=== PATIENT | female | born 1950 | race Caucasian/White ===

== ENCOUNTER 2017-08-14 14:50 | Emergency (ER) ==
[2017-08-14 14:57] VITALS: BP 195/103; TEMP 97.8; BMI 26.2
[2017-08-14] MEDS ORDERED: LOPRESSOR IVP STA (16:34)
--- NOTE | 2017-08-14 16:36 | DI ---
EXAM: Chest two view, frontal and lateral views. HISTORY: Chest pain. COMPARISON: None available. FINDINGS: The heart size is normal. Atherosclerotic calcifications present. There is no pulmonary vascular congestion. The lungs are clear. No pleural effusion or pneumothorax is seen. No acute os seous abnormality identified. IMPRESSION: No acute cardiopulmonary process.
[2017-08-14] MEDS ORDERED: MORPHINE 2 MG/ML SYRINGE IVP STA (17:38)
[2017-08-14] MEDS ORDERED: VASOTEC IV IVP STA (17:52)
[2017-08-14] MEDS ORDERED: VASOTEC IV IVP PRN (17:52)
[2017-08-14] MEDS ORDERED: NORCO 10-325 PO STA (17:54)
[2017-08-14] MEDS ORDERED: LOVENOX SUBCUT SCH (18:00)
[2017-08-14] MEDS ORDERED: SODIUM CHLORIDE 1,000 ML IV SCH (18:00)
--- NOTE | 2017-08-14 18:00 | ED.PDOC ---
General ED Provider: Dr. MARIAMA BOWERS Chief Complaint: Hypertension Stated Complaint: hypertension Time Seen by Physician: 15:00 Mode of Arrival: Walk-In Information Source: Patient Exam Limitations: No limitations Primary Care Provider: AD ONEAL Nursing and Triage Documentation Reviewed and Agree: Yes Reviewed sepsis parameters & appropriate labs ordered?: Yes System Inflammatory Response Syndrome: Not Applicable Sepsis Protocol: For patient's 13 years and over: Temp is 96.8 and below OR 101 and greater Pulse >90 BPM Resp >20/minute Acutely Altered Mental Status Are patient's symptoms suggestive of a new infection, such as: -Pneumonia -Skin, Soft Tissue -Endocarditis -UTI -Bone, Joint Infection -Implantable Device -Acute Abdominal Infection -Wound Infection -Meningitis -Blood Stream Catheter Infection -Unknown Cardiovascular Complaint Exam - Hypertension Complaint/Exam Symptoms Are: Still present Timing: Intermittent Aggravating: Reports: None Alleviating: Reports: None Associated Signs and Symptoms: Reports: Chest pain. Denies: Vision changes, Anxiety, Recent stress, Headache, Numbness, Tingling, Weakness, Dizziness, Short of air, Swelling Related History: Reports: Similar episode Related Surgical History: Reports: None Cardiac Risk Factors: Reports: Hypertension Recent Change in Medications: No A/V Nicking: No Papilledema Present: No JVD Present: No Carotid Bruit Present: No Femoral Pulses Bounding: No Differential Diagnoses: Hypertensive Urgency Quality Indicator For Non-Traumatic Chest Pain/Syncope: EKG Performed Review of Systems - Review Of Systems Constitutional: Reports: No symptoms Eyes: Reports: No symptoms Ears, Nose, Mouth, Throat: Reports: No symptoms Respiratory: Reports: No symptoms Cardiac: Reports: Chest pain GI: Reports: No symptoms : Reports: No symptoms Musculoskeletal: Reports: No symptoms Skin: Reports: No symptoms Neurological: Reports: No symptoms Endocrine: Reports: No symptoms Hematologic/Lymphatic: Reports: No symptoms All Other Systems: Reviewed and Negative Past Medical History - Past Medical History Previously Healthy: Yes Endocrine: Reports: Dyslipidemia Cardiovascular: Reports: Hypertension Respiratory: Reports: None Hematological: Reports: None Gastrointestinal: Reports: None Genitourinary: Reports: None Neuro/Psych: Reports: None Musculoskeletal: Reports: None Cancer: Reports: None Last Menstrual Period: na - Surgical History General Surgical History: Reports: None - Family History Family History: Reports: None - Social History Smoking Status: Former smoker Hx Substance Use: No Alcohol Screening: None - Immunizations Tetanus Shot up to Date: Yes Physical Exam - Physical Exam Appearance: Well-appearing, No pain distress, Well-nourished Eyes: PETER, EOMI, Conjunctiva clear ENT: Ears normal, Nose normal, Oropharynx normal Respiratory: Airway patent, Breath sounds clear, Breath sounds equal, Respirations nonlabored Cardiovascular: RRR, Pulses normal, No rub, No murmur GI/: Soft, Nontender, No masses, Bowel sounds normal, No Organomegaly Musculoskeletal: Normal strength, ROM intact, No edema, No calf tenderness Skin: Warm, Dry, Normal color Neurological: Sensation intact, Motor intact, Reflexes intact, Cranial nerves intact, Alert, Oriented Psychiatric: Affect appropriate, Mood appropriate Interpretation - Radiology Interpretation Radiology Interpretation By: Radiologist Radiology Results: No acute changes Physician Notification - Case Discussed Physician Notified: pmd Time of Notification: 17:59 Critical Care Note - Critical Care Note Total Time (mins): 0 Course - Course Hematology/Chemistry: 08/14/17 16:20 08/14/17 16:20 Orders, Labs, Meds: Lab Review 08/14/17 08/14/17 08/14/17 16:08 16:20 16:20 WBC 6.45 RBC 4.32 Hgb 13.6 Hct 38.4 MCV 88.9 MCH 31.5 H MCHC 35.4 RDW Coeff of Juan Miguel 13.2 Plt Count 276 Immature Gran % (Auto) 0.2 Neut % (Auto) 57.0 Lymph % (Auto) 31.3 [place] % (Auto) 9.3 Eos % (Auto) 1.6 Baso % (Auto) 0.6 Immature Gran # (Auto) 0.0 Neut # 3.7 Lymph # 2.0 [place] # 0.6 Eos # 0.1 Baso # 0.0 Sodium 144 Potassium 3.5 Chloride 111 H Carbon Dioxide 23 Anion Gap 13.5 BUN 9 Creatinine 0.79 Estimated GFR (MDRD) 73.00 BUN/Creatinine Ratio 11.39 Glucose 78 L Calcium 9.5 Total Bilirubin 0.7 AST 18 ALT 18 Alkaline Phosphatase 62 Total Creatine Kinase 52 Troponin I < 0.0100 Total Protein 6.9 Albumin 4.0 Globulin 2.9 Albumin/Globulin Ratio 1.38 Influenza A (Rapid) Negative by naat Influenza B (Rapid) Negative by naat Orders Category Date Time Status [facility] ADMISSION 08/14/17 17: 54 Ordered EKG-(ED ONLY) Stat CARDIO 08/14/17 15:31 Completed EKG-(ED ONLY) Stat CARDIO 08/14/17 16:33 Completed ACTIVITY .BR with BRP CARE 08/14/17 17:54 Ordered TELEMETRY MONITORING TELE CARE 08/14/17 17:55 Ordered VITAL SIGNS Q4HR CARE 08/14/17 17:54 Ordered REGULAR DIET DIETARY 08/14/17 Dinner Ordered CBC W/ AUTO DIFF DAILY@0600 LAB 08/15/17 06:00 Ordered CBC W/ AUTO DIFF DAILY@0600 LAB 08/16/17 06:00 Ordered CBC W/ AUTO DIFF Stat LAB 08/14/17 16:20 Completed COMPREHENSIVE METABOLIC PANEL DAILY@0600 LAB 08/15/17 06:00 Ordered COMPREHENSIVE METABOLIC PANEL DAILY@0600 LAB 08/16/17 06:00 Ordered COMPREHENSIVE METABOLIC PANEL Stat LAB 08/14/17 16:20 Completed CREATINE KINASE Q8H LAB 08/14/17 23:56 Ordered CREATINE KINASE Q8H LAB 08/15/17 07:56 Ordered CREATINE KINASE Stat LAB 08/14/17 16:20 Completed MOLECULAR FLU A/B Stat LAB 08/14/17 16:08 Completed MOLECULAR GROUP A STREP Stat LAB 08/14/17 16:08 Results STREP SCREEN Stat LAB 08/14/17 16:08 Results TROPONIN I Q8H LAB 08/14/17 23:56 Ordered TROPONIN I Q8H LAB 08/15/17 07:56 Ordered TROPONIN I Stat LAB 08/14/17 16:20 Completed 0.9 % Sodium Chloride [Saline Flush] MEDS 08/14/17 15:30 Active 1 syr IVF PRN PRN Aspirin [Aspirin Chewable] MEDS 08/15/17 08:00 Ordered 81 mg PO DAILYWM Atorvastatin Calcium [Lipitor] MEDS 08/15/17 09:00 Ordered 40 mg PO DAILY Enalaprilat Dihydrate [Vasotec IV] MEDS 08/14/17 17:52 Discontinued 1.25 mg IVP ONCE STA Enalaprilat Dihydrate [Vasotec IV] MEDS 08/14/17 17:52 Ordered 1.25 mg IVP Q6H PRN Enoxaparin Sodium [Lovenox] MEDS 08/14/17 18:00 Ordered 60 mg SUBCUT Q12HR Hydrocodone Bit/Acetaminophen [[place] 10-325] MEDS 08/14/17 17:54 Stat 1 tab PO ONCE STA Losartan Potassium MEDS 08/15/17 09:00 Ordered 50 mg PO DAILY Metoprolol Tartrate [Lopressor] MEDS 08/14/17 16:34 Discontinued 5 mg IVP ONCE STA Metoprolol Tartrate [Lopressor] MEDS 08/15/17 09:00 Ordered 50 mg PO DAILY Morphine Sulfate [Morphine 2 mg/ml Syringe] MEDS 08/14/17 17:38 Discontinued 2 mg IVP ONCE STA Pantoprazole Sodium [Protonix] MEDS 08/15/17 06:30 Ordered 40 mg PO QDAC Sodium Chloride 0.9% [Sodium Chloride] 1,000 ml MEDS 08/14/17 18:00 Ordered IV 75 mls/hr CHEST, 2 VIEWS PA & LAT Stat RADS 08/14/17 15:30 Completed Medications Generic Name Dose Route Start Last Admin Trade Name Freq PRN Reason Stop Dose Admin Aspirin 81 mg 08/15/17 08:00 Aspirin Chewable PO DAILYWM BEBA Enalaprilat 1.25 mg 08/14/17 17:52 Vasotec Iv IVP Q6H PRN Hypertensive Emergency Enoxaparin Sodium 60 mg 08/14/17 18:00 Lovenox SUBCUT Q12HR BEBA Sodium Chloride 1,000 mls @ 75 mls/hr 08/14/17 18:00 Sodium Chloride IV .[id number] BEBA Metoprolol Tartrate 50 mg 08/15/17 09:00 Lopressor PO DAILY BEBA Non-Formulary Medication 40 mg 08/15/17 09:00 Atorvastatin Calcium [Lipitor] PO DAILY BEBA Non-Formulary Medication 50 mg 08/15/17 09:00 Losartan Potassium PO DAILY BEBA Pantoprazole Sodium 40 mg 08/15/17 06:30 Protonix PO QDAC BEBA Sodium Chloride 1 syr 08/14/17 15:30 08/14/17 17:08 Saline Flush IVF 1 syr PRN PRN Administration To flush IV Discontinued Medications Generic Name Dose Route Start Last Admin Trade Name Freq PRN Reason Stop Dose Admin Acetaminophen/Hydrocodone Bitart 1 tab 08/14/17 17:54 [place] 10-325 PO 08/14/17 17:55 ONCE STA Enalaprilat 1.25 mg 08/14/17 17:52 Vasotec Iv IVP 08/14/17 17:53 ONCE STA Metoprolol Tartrate 5 mg 08/14/17 16:34 08/14/17 17:07 Lopressor IVP 08/14/17 16:35 5 mg ONCE STA Administration Morphine Sulfate 2 mg 08/14/17 17:38 Morphine 2 Mg/Ml Syringe IVP 08/14/17 17:39 ONCE STA Vital Signs: Temp Pulse Resp BP Pulse Ox 08/14/17 14:50 97.8 F 61 16 195/103 H 97 [place] Risk Score [place] Risk Score: Risk Score Odds of by 30D 0 0.1 (0.1-0.2) 1 0.3 (0.2-0.3) 2 0.4 (0.3-0.5) 3 0.7 (0.6-0.9) 4 1.2 (1.0-1.5) 5 2.2 (1.9-2.6) 6 3.0 (2.5-3.6) 7 4.8 (3.8-6.1) Departure - Departure Time of Disposition: 18:00 Disposition: ADMITTED INPATIENT Discharge Problem: Chest pain Qualifiers: Chest pain type: unspecified Qualified Code(s): R07.9 - Chest pain, unspecified Instructions: Chest Pain (ED), Angina (ED) Condition: Good Pt referred to PMD for follow-up: Yes Additional Instructions: Please call your Family Physician as soon as possible to schedule a follow-up appointment. Allergies/Adverse Reactions: Allergies codeine Adverse Reaction (Verified 06/17/17 12:51) morphine Adverse Reaction (Verified 08/14/17 17:51) Home Medications: Ambulatory Orders Atorvastatin Calcium [Lipitor] 40 mg PO DAILY 06/08/14 Clonazepam [Klonopin] 0.5 mg PO BEDTIME 06/08/14 Escitalopram Oxalate [Lexapro] 20 mg PO DAILY 06/08/14 Metoprolol Tartrate [Lopressor] 50 mg PO DAILY 06/08/14 Pantoprazole Sodium [Protonix] 40 mg PO QDAC 06/08/14 Aspirin [Aspirin Chewable] 81 mg PO DAILYWM 06/17/17 Losartan Potassium [Cozaar] 50 mg PO DAILY 06/17/17 Disposition Discussed With: Patient, Family
[2017-08-14] MEDS ORDERED: CARDENE-NACL 20 MG/200 ML SOLN 200 ML IV ONE (18:52)
[2017-08-14] MEDS ORDERED: CARDENE-NACL 20 MG/200 ML SOLN 20 MG in PREMIX 200ML 0.86% SODIUM CHLORIDE 1 BAG IV SCH (19:00)
[2017-08-14] MEDS ORDERED: ATIVAN IVP STA (19:23)
[2017-08-14] MEDS ORDERED: CATAPRES PO STA (20:11)
[2017-08-15] MEDS ORDERED: PROTONIX PO SCH (06:30)
[2017-08-15] MEDS ORDERED: ASPIRIN CHEWABLE PO SCH (08:00)
[2017-08-15] MEDS ORDERED: NON-FORMULARY MEDICATION (Losartan Potassium 50 MG) PO SCH (09:00)
[2017-08-15] MEDS ORDERED: NON-FORMULARY MEDICATION (Atorvastatin Calcium [Lipitor] 40 MG) PO SCH (09:00)
[2017-08-15] MEDS ORDERED: LOPRESSOR PO SCH (09:00)
== END 2017-08-14 22:00 | disposition left against medical advice (07) ==
LOC: ED 14:50 → UNDOADMIN 18:45 → MEDSURG A 18:45 → ED 22:00
DX: R07.9 Chest pain, unspecified (principal); I10 Essential (primary) hypertension; E78.5 Hyperlipidemia, unspecified; Z79.899 Other long term (current) drug therapy
CPT/HCPCS: 36415; 80053; 81001; 82550; 84484; 85025; 87086; 87186; 87502; 87651; 87880; 93005; 93010; 96365; 96375; 99285

== ENCOUNTER 2018-10-28 09:12 | Day surgery (SDC) | payer OTHER ==
[2018-10-28 10:10] VITALS: TEMP 97.4
[2018-10-28] MEDS ORDERED: LIDOCAINE 1% 20 ML MDV ID STA (10:12)
[2018-10-28] MEDS ORDERED: DIPRIVAN 20 ML VIAL IVP ONE (12:00)
[2018-10-28] MEDS ORDERED: VERSED ONE (12:00)
[2018-10-28 15:13] VITALS: BP 132/66
--- NOTE | 2018-10-29 11:26 | OP ---
INDICATIONS FOR PROCEDURE: 68 year old female presents for colonoscopy exam. She has a history of rectal cancer treated in 2010. She has a colostomy placed in 2016. She presents for surveillance examination. MEDICATIONS: SEE ANESTHESIA NOTES. PROCEDURE: COLONOSCOPY. SNARE POLYPECTOMY. BIOPSY. REPORT: The risks, benefits, alternatives and limitations were discussed in detail with the patient. Informed consent was obtained. After adequate sedation was achieved, inspection of the ostomy revealed what looked like granulation tissue at the opening. A digital rectal exam of the ostomy revealed no stricturing. The colonoscope was introduced into the ostomy opening and I then advanced this under direct visual guidance to the cecum. The cecum was identified by the appendiceal orifice and IC valve. I then slowly withdrew the scope in circumferential manner and examined the mucosa quite carefully. I looked on the proximal and distal sides of folds and flexures as best as possible. I retroflexed the scope in the right colon and the left colon where I could. In the distal colon which would be the descending area there was a diminutive 4mm polyp that I destroyed using a snare. Once I encouraged the ostomy anastomosis I again identified what looked like to be granulation tissue. I biopsied this for histological review. No other abnormalities were noted. The prep was good. The withdraw time 7 minutes and 58 seconds. The patient tolerated the procedure well with stable vital signs and pulse oximetry throughout. IMPRESSION: 1. Diminutive polyp destroyed 2. Probably granulation tissue at the ostomy anastomosis. Biopsied RECOMMENDATIONS: 1. Await pathology results and if everything is benign as expected recommend a surveillance examination again in 3 years or sooner if signs or symptoms would indicated otherwise. CC: Dr. Velásquez ADDENDUM: I did talk to Mrs. Vincent after her procedure. She had told me that she had her rectum sewn shut. When I discussed with her he did not believe so. We elected to do an exam with her wide awake. We brought her back to the endo suite. Digitalization of the anus revealed stenosis. I was able to introduce a endoscopy in the rectal pouch. I advanced it for about 10-12cm from the external anus. Where I encountered the closed blind pouch anastomosis. I then slowly withdrew. There was mucus present throughout the rectal pouch but no mucosal abnormalities. The patient did tolerate this procedure with stable vital signs and pulse oximetry. She was wide awake and had no complaints during the procedure. She was happy we looked and she now she knows that she does have a rectal pouch. I did suggest that next time we do a colonoscopy that we also check the rectal pouch. I suggested surveillance examination again in 3 years. BLANCHE
== END 2018-10-28 13:30 | disposition home or self-care (01) ==
LOC: SURG 09:12
PROVIDERS: ATTEND Internal Medicine Gastroenterology
DX: Z85.048 Personal history of other malignant neoplasm of rectum, rectosigmoid junction, and anus (principal); Z86.010 Personal history of colon polyps; K63.5 Polyp of colon; K63.89 Other specified diseases of intestine